=== PATIENT | male | born 1975 | race African-American/Black ===

== ENCOUNTER 2025-11-01 08:35 | Outpatient (AMB) | payer OTHER, SELFPAY ==
--- NOTE | 2025-11-01 08:50 | MHC.OFFWIV ---
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 Patient states that he had pain and what he thought was a pimple on his upper lip that has become quite painful and swollen. Patient denies having a fever, chills, swollen tongue, sore throat or difficulty swallowing. Patient has been using [id number] chapstick only without relief of his symptoms. [facility] Social History Patient Tobacco Use Status: Never used Tobacco Review of Systems Const All systems reviewed & are unremarkable except as noted in HPI and below Reports no additional complaints, Denies chills and Denies fever(s) Eyes Reports no additional complaints ENT Details: swollen upper lip with pain Card Reports no additional complaints Resp Reports no additional complaints GI Reports no additional complaints Musc Reports no additional complaints Skin/Breast Reports system reviewed and no additional complaints, except as documented Psych Reports no additional complaints Endo Reports no additional complaints Rahul/Lymph Reports no additional complaints Physical Exam Vital Signs: Last Vital Signs Temp 98.5 F 11/01/25 08:51 Pulse 51 11/01/25 08:51 Resp 16 11/01/25 08:51 BP 120/80 11/01/25 08:51 Pulse Ox 99 11/01/25 08:51 Oxygen Delivery Method Room Air 11/01/25 08:51 Patient is afebrile. Const General: cooperative, healthy appearing, comfortable, no acute distress, well developed, alert, awake and Physically active; No ill appearing or lethargic Nutritional Appearance: average body habitus Orientation/consciousness: patient oriented x3 and No lethargic Limitations: no limitations HEENT Head: Yes normal to inspection and Yes normocephalic Mouth: lip abnormal (there are grouped vesicles that are hypopigmented on the right upper lip), tongue normal, oropharynx normal, moist mucous membranes, no audible dysphonia, no drooling and breath no malodorous Eyes General: appearance normal, both eyes and all related structures Neck Lymphatic: no lymphadenopathy noted Neuro General: patient oriented x3 Psych Appearance: grossly normal Mental Status: mental status grossly normal Insight: Good insight present (Psych) Judgement: Good judgement present (Psych) Assessment & Plan Assessment & Plan (1) 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 Patient states that he has had similar lesions however it was over 10 years ago. Code(s): B00.1 - Herpesviral vesicular dermatitis Plan: Valtrex 2 g x 12 hours #4, Tylenol or ibuprofen as needed for discomfort. 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
[2025-11-01 08:51] VITALS: BP 120/80; PULSE 51; RESP 16; TEMP 36.9; O2SAT 99
== END 2025-11-01 09:46 | disposition home or self-care (01) ==
PROVIDERS: Visit Provider Physician Assistant
DX: B00.1 Herpesviral vesicular dermatitis (principal)